=== PATIENT | male | born 1940 | race Caucasian/White ===

== ENCOUNTER 2019-10-22 13:22 | Outpatient (CLI) | payer MEDICARE, OTHER, SELFPAY ==
--- NOTE | 2019-10-22 13:37 | MR_ITS ---
WS: [id number] MRI ORBIT/NECK with and without CONTRAST. COMPARISON: None Multiplanar, multisequence imaging is performed with and without contrast. Sagittal and axial T1 fat sat sequences post-ProHance 16 cc IV. No acute infarct or hemorrhage. There is mild atrophy and volume loss. Moderate chronic microvascular ischemic changes in the periventricular and subcortical white matter. No enhancing lesions. Small ar ea of ischemia in the LEFT deo. No space-occupying lesion in the orbits or globes. Optic nerves are symmetric bilaterally. The extrao cular muscles are normal size. No mass or abnormal enhancement along the optic radiations. Ventricles are normal size. No aneurysms are identified with mass effect upon the optic nerves. MR/MR orbit face neck wo/w* [id number] IMPRESSION: 1. No abnormality noted within the orbits, globes are lung optic nerves or opt ic radiations. 2. No aneurysm appreciated. 3. Moderate chronic microvascular ischemic disease as above.
[2019-10-22 14:14] LABS: Blood Urea Nitrogen 17 mg/dL (8-23)
== END 2019-10-22 13:23 | disposition home or self-care (01) ==
LOC: RADWPI 13:32
PROVIDERS: PCP Family Medicine; Visit Provider Family Medicine
DX: I99.8 Other disorder of circulatory system (principal); H53.2 Diplopia; R42 Dizziness and giddiness
CPT/HCPCS: 70543; 82565; 84520; A9579

== ENCOUNTER 2021-04-19 09:52 | Outpatient (CLI) | payer MEDICARE, OTHER, SELFPAY ==
--- NOTE | 2021-04-19 10:00 | XR_ITS ---
WS: [id number] Chest 2 views, 04/19/2021 Clinical Data: RESPIRATORY CRACKLES Comparison: None. Findings: No nodules, masses or effusions are seen. The heart is at the upper limits of normal. The p ulmonary vascularity is not increased. No pneumonia or pneumothorax is seen. The aortic arch and desc ending thoracic aorta show calcification and tortuosity. The diaphragms are flattened. XR/XR chest 2V* [id number] Impression: Atherosclerosis and hyperinflation.
== END 2021-04-19 09:53 | disposition home or self-care (01) ==
LOC: RAD 09:58
PROVIDERS: PCP Family Medicine; Visit Provider Family Medicine
DX: R09.89 Other specified symptoms and signs involving the circulatory and respiratory systems (principal); I70.90 Unspecified atherosclerosis
CPT/HCPCS: 71046

== ENCOUNTER → 2022-04-17 08:17 | Outpatient (BNVA) | payer MEDICARE, OTHER, SELFPAY | PROVIDERS: PCP Family Medicine; Visit Provider Family Medicine | DX: Z00.00 Encounter for general adult medical examination without abnormal findings (principal); I10 Essential (primary) hypertension | CPT/HCPCS: 80053; 80061; 84439; 84443; 85025 ==

== ENCOUNTER → 2022-10-09 10:06 | Outpatient (BNVA) | payer MEDICARE, OTHER, SELFPAY | PROVIDERS: PCP Family Medicine; Visit Provider Family Medicine | DX: D58.2 Other hemoglobinopathies (principal); E78.5 Hyperlipidemia, unspecified; I10 Essential (primary) hypertension; E11.9 Type 2 diabetes mellitus without complications; R79.89 Other specified abnormal findings of blood chemistry; Z51.81 Encounter for therapeutic drug level monitoring; Z13.220 Encounter for screening for lipoid disorders | CPT/HCPCS: 80053; 80061; 83036; 84439; 84443; 85025 ==

== ENCOUNTER → 2023-04-17 09:23 | Outpatient (BNVA) | payer MEDICARE, SELFPAY | PROVIDERS: PCP Family Medicine; Visit Provider Family Medicine | DX: R79.89 Other specified abnormal findings of blood chemistry (principal); D58.2 Other hemoglobinopathies; E78.5 Hyperlipidemia, unspecified; I10 Essential (primary) hypertension; E55.9 Vitamin D deficiency, unspecified; R39.15 Urgency of urination; R73.09 Other abnormal glucose | CPT/HCPCS: 80053; 80061; 83036; 85025 ==